=== PATIENT | female | born 1990 | race Caucasian/White ===

== ENCOUNTER 2019-03-11 10:12 | Emergency (ER) | payer OTHER ==
[2019-03-11 10:46] VITALS: BP 102/67
--- NOTE | 2019-03-11 10:57 | UC ---
Skin Complaint HPI - HPI Summary HPI Summary: 28-year-old woman comes in with a chief complaint of rash. Started 2 days ago she noticed on her left side of her lower back. It was preceded by some itching. The rash is spreading along the dermatome. Patient wonders if it's shingles. No vesicles. Feels well otherwise. - History of Current Complaint Chief Complaint: UCSkin Time Seen by Provider: 03/11/19 10:45 Stated Complaint: SKIN COMPLAINT Hx Last Menstrual Period: 02/17/19 Pain Intensity: 3 - Allergy/Home Medications Allergies/Adverse Reactions: Allergies Allergy/AdvReac Type Severity Reaction Status Date / Time No Known Allergies Allergy Verified 03/11/19 10:45 Home Medications: Home Medications Levothyroxine TAB* [Synthroid TAB*] 50 mcg PO 03/11/19 [History] PMH/Surg Hx/FS Hx/Imm Hx Previously Healthy: Yes Endocrine History: Hypothyroidism - Surgical History Surgical History: Yes Surgery Procedure, Year, and Place: knee arthroscopy 2001, wisdom teeth extraction - Family History Known Family History: Positive: Non-Contributory - Social History Alcohol Use: None Substance Use Type: None Smoking Status (MU): Never Smoked Tobacco Review of Systems All Other Systems Reviewed And Are Negative: Yes Constitutional: Positive: Negative Skin: Positive: Other - see hpi Eyes: Positive: Negative ENT: Positive: Negative Respiratory: Positive: Negative Cardiovascular: Positive: Negative Gastrointestinal: Positive: Negative Motor: Positive: Negative Neurovascular: Positive: Negative Musculoskeletal: Positive: Negative Neurological: Positive: Negative Psychological: Positive: Negative Is Patient Immunocompromised?: No Physical Exam Triage Information Reviewed: Yes Appearance: Well-Appearing, No Pain Distress, Well-Nourished Vital Signs: Initial Vital Signs Temp 98.7 F 03/11/19 10:42 Pulse 82 03/11/19 10:42 Resp 18 03/11/19 10:42 BP 102/67 03/11/19 10:42 Pulse Ox 99 03/11/19 10:42 Vital Signs Reviewed: Yes Eye Exam: Normal Eyes: Positive: Conjunctiva Clear Neck: Positive: Supple Respiratory: Positive: No respiratory distress Musculoskeletal: Positive: Strength Intact, ROM Intact Neurological: Positive: Alert Psychological: Positive: Age Appropriate Behavior Skin: Positive: Other - There are patches of an erythematous rash in a dermatomal distribution starting the left lower back wrapping around the left upper thigh. No vesicles no streaking. The rash is consistent with shingles. Course/Dx - Diagnoses Provider Diagnosis: Shingles Discharge - Sign-Out/Discharge Documenting (check all that apply): Patient Departure All imaging exams completed and their final reports reviewed: No Studies - Discharge Plan Condition: Stable Disposition: HOME Prescriptions: ValACYclovir (*) [Valtrex 1 GM(*)] 1 gm PO TID #21 tab Patient Education Materials: Shingles (ED) Referrals: [facility] [Outside] Additional Instructions: FOLLOW UP WITH YOUR DOCTOR IF NOT COMPLETELY IMPROVED. GET RECHECKED SOONER IF YOUR CONDITION WORSENS OR ANY QUESTIONS OR CONCERNS. - Billing Disposition and Condition Condition: STABLE Disposition: Home
== END 2019-03-11 11:17 | disposition home or self-care (01) ==
LOC: UCEAST 10:12
DX: B02.9 Zoster without complications (principal); E03.9 Hypothyroidism, unspecified
CPT/HCPCS: 99212; G0463

== ENCOUNTER 2020-03-02 14:57 | Inpatient (IN) ==
[2020-03-02] MEDS ORDERED: Witch Hazel PAD JAR TOPICAL PRN (15:22)
[2020-03-02] MEDS ORDERED: Dibucaine 1% OINT 28.35 GM TUBE PR PRN (15:22)
[2020-03-02] MEDS ORDERED: RHO D Immune Globulin (HUMAN) 300 MCG = 1,500 I.U. INJ IM ONE (15:22)
[2020-03-02] MEDS ORDERED: Glycerin ADULT 2.4 gm SUPP PR PRN (15:22)
[2020-03-03 08:35] LABS: ABS Lymphocytes 1.6 10^3/ul (1.0-4.8); ABS Monocytes 0.5 10^3/ul (0-0.8); Eosinophil % 0.1 %; Hematocrit 31 % (35-47); Hemoglobin 10.2 g/dL (12.0-16.0); Mean Corpuscular HGB Conc 33 g/dL (31-36); Mean Corpuscular Hemoglobin 26 pg (27-31); Mean Corpuscular Volume 80 fL (80-97); Mean Platelet Volume 7.9 fL (7.4-10.4); Platelet Count 206 10^3/uL (150-450); Red Blood Count 3.89 10^6 /uL (3.70-4.87); Red Cell Distribution Width 14 % (10-15); White Blood Count 12.1 10^3/uL (3.5-10.8)
[2020-03-03 12:01] VITALS: BP 102/58
== END 2020-03-03 16:24 | disposition home or self-care (01) | DRG 807 ==
LOC: MCHOBOUT 14:57 → MCHOB 15:08
PROVIDERS: ADMIT Obstetrics & Gynecology; ATTEND Obstetrics & Gynecology